=== PATIENT | female | born 1965 | race Caucasian/White ===

== ENCOUNTER → 2018-01-23 | Emergency (ER) | payer OTHER ==
[~2018-01-23] VITALS: Ht 172.7 cm; Wt 45.4 kg
[~2018-01-23] MED LIST: CYMBALTA30 MG PO; ELAVIL PO; LOSARTAN-HCTZ1 EACH PO; NABUMETONE500 MG PO; PENTOXIFYLLINE400 MG; PERCOCET 5-3251 EACH PO; XANAX XR2 MG PO
== END | disposition home or self-care (01) ==
LOC: ER 13:25
DX: K29.70 Gastritis, unspecified, without bleeding (principal); F06.4 Anxiety disorder due to known physiological condition; R20.0 Anesthesia of skin

== ENCOUNTER 2018-05-13 13:44 | Outpatient (CLI) | payer OTHER | END 2018-05-13 14:13 | disposition home or self-care (01) | LOC: LAB 13:44 | DX: M79.7 Fibromyalgia (principal); F33.8 Other recurrent depressive disorders; I10 Essential (primary) hypertension; M35.3 Polymyalgia rheumatica; E04.0 Nontoxic diffuse goiter; D50.8 Other iron deficiency anemias; D51.1 Vitamin B12 deficiency anemia due to selective vitamin B12 malabsorption with proteinuria; D51.0 Vitamin B12 deficiency anemia due to intrinsic factor deficiency; E06.3 Autoimmune thyroiditis; E03.8 Other specified hypothyroidism; D68.8 Other specified coagulation defects; M32.9 Systemic lupus erythematosus, unspecified ==

== ENCOUNTER 2018-05-13 14:33 | Outpatient (CLI) | payer OTHER | END 2018-05-13 14:35 | disposition home or self-care (01) | LOC: SONOGRAMA 14:33 | DX: M79.7 Fibromyalgia (principal); F33.8 Other recurrent depressive disorders; I10 Essential (primary) hypertension; M35.3 Polymyalgia rheumatica; E04.0 Nontoxic diffuse goiter; E03.8 Other specified hypothyroidism; E06.3 Autoimmune thyroiditis ==

== ENCOUNTER → 2018-08-21 | Outpatient (CLI) | payer OTHER | END | disposition home or self-care (01) | LOC: SONOGRAMA 11:11 | DX: E06.3 Autoimmune thyroiditis (principal); E03.8 Other specified hypothyroidism ==

== ENCOUNTER 2018-12-16 11:10 | Outpatient (CLI) | payer OTHER | END 2018-12-16 11:15 | disposition home or self-care (01) | LOC: SONOGRAMA 11:10 | DX: K80.20 Calculus of gallbladder without cholecystitis without obstruction (principal); K81.9 Cholecystitis, unspecified ==

== ENCOUNTER → 2018-12-16 | Outpatient (CLI) | payer OTHER | END | disposition home or self-care (01) | LOC: LAB 07:15 | DX: E11.65 Type 2 diabetes mellitus with hyperglycemia (principal); N39.0 Urinary tract infection, site not specified; E78.2 Mixed hyperlipidemia; Z12.11 Encounter for screening for malignant neoplasm of colon; E11.21 Type 2 diabetes mellitus with diabetic nephropathy; B19.9 Unspecified viral hepatitis without hepatic coma; R79.89 Other specified abnormal findings of blood chemistry ==

== ENCOUNTER 2019-04-17 07:55 | Outpatient (CLI) | payer OTHER | END 2019-04-17 08:17 | disposition home or self-care (01) | LOC: TOM 07:55 | DX: K80.20 Calculus of gallbladder without cholecystitis without obstruction (principal); R10.84 Generalized abdominal pain ==

== ENCOUNTER → 2019-05-19 | Day surgery (SDC) | payer OTHER ==
[~2019-05-19] MED LIST changes: +RESTORIL30 M1 PO; +SEROQUEL50 MG PO; +XANAX1 MG PO
== END | disposition home or self-care (01) ==
LOC: ADM 05-11 07:00 → CIR.AMB 06:15
DX: K80.10 Calculus of gallbladder with chronic cholecystitis without obstruction (principal)

== ENCOUNTER → 2019-08-06 | Outpatient (CLI) | payer OTHER | END | disposition home or self-care (01) | LOC: SONOGRAMA 13:02 | DX: E04.0 Nontoxic diffuse goiter (principal); E04.2 Nontoxic multinodular goiter; D51.1 Vitamin B12 deficiency anemia due to selective vitamin B12 malabsorption with proteinuria; M79.7 Fibromyalgia; M35.3 Polymyalgia rheumatica; M33.22 Polymyositis with myopathy; I10 Essential (primary) hypertension; F33.8 Other recurrent depressive disorders ==

== ENCOUNTER 2022-01-09 10:33 | Outpatient (CLI) | payer OTHER ==
[2022-01-09] MEDS ORDERED: PEPCID AC20 MG PO (14:57)
== END 2022-01-09 10:55 | disposition home or self-care (01) ==
LOC: SONOGRAMA 10:33
DX: D34 Benign neoplasm of thyroid gland (principal)

== ENCOUNTER 2022-01-09 11:20 | Emergency (ER) | payer OTHER ==
[~2022-01-09] VITALS: Ht 157.5 cm; Wt 106.6 kg
[2022-01-09] MEDS ORDERED: PEPCID AC20 MG PO (14:57)
== END 2022-01-09 15:11 | disposition home or self-care (01) ==
LOC: ER 11:20
DX: R10.13 Epigastric pain (principal); R07.89 Other chest pain; I10 Essential (primary) hypertension

== ENCOUNTER 2022-08-28 10:45 | Emergency (ER) | payer OTHER ==
[~2022-08-28] VITALS: Ht 157.5 cm; Wt 108.9 kg
[~2022-08-28 10:45] MED LIST changes: +PEPCID AC20 MG PO
[2022-08-28] MEDS ORDERED: LOSARTAN-HCTZ1 EACH PO (11:20)
[2022-08-28] MEDS ORDERED: FLONASE ALLERG9.9 ML NASAL (17:20)
[2022-08-28] MEDS ORDERED: TUSSI PRES-B L480 ML PO (17:20)
== END 2022-08-28 18:00 | disposition home or self-care (01) ==
LOC: ER 10:45
DX: J06.9 Acute upper respiratory infection, unspecified (principal); Z20.822 Contact with and (suspected) exposure to COVID-19

== ENCOUNTER 2024-08-26 12:38 | Outpatient (CLI) | payer OTHER ==
[~2024-08-26 12:38] MED LIST changes: +FLONASE ALLERG9.9 ML NASAL; +TUSSI PRES-B L480 ML PO
== END 2024-08-26 12:47 | disposition home or self-care (01) ==
LOC: SONOGRAMA 12:38
DX: E04.1 Nontoxic single thyroid nodule (principal)